=== PATIENT | female | born 1940 | race Caucasian/White ===

== ENCOUNTER 2024-09-15 22:42 | Emergency (ER) | payer MEDICARE, OTHER, SELFPAY ==
[2024-09-15 22:45] VITALS: BP 102/72
[2024-09-15 23:53] VITALS: BMI 42.0
--- NOTE | 2024-09-15 23:54 | ED.GENMED ---
History of Present Illness
General
Chief Complaint: Skin Surface Trauma
Source: patient
Time Seen by Provider: 09/15/24 23:37
Nursing documentation reviewed up to this point in time: agreed with
History of Present Illness
History of Present Illness:
Pleasant 84-year-old female presents to the emergency department after stepping on some broken glass. She had a slight laceration to the bottom of her right foot. Wound was thoroughly cleaned and no evidence of foreign body noted.
Past History
Past History
ED Past Medical History: COPD, HTN, Hypercholesterolemia and Other (diverticulitis, Chronic shoulder pain, Vertigo,)
ED Past Surgical History: Gynecological (Ovarian cyst)
Patient has exhibited threatening behavior?: No
Social History
Tobacco: Former smoker
Alcohol: Occasional
Drug: None
Personal:
Living: with family
Review of Systems
Review of Systems
Allergies reviewed?: Yes
All Other Systems: ROS reviewed and negative except as documented in HPI and ROS
Constitutional: Reports no symptoms
EENT: Reports no symptoms
Respiratory: Reports no symptoms
Cardiac: Reports no symptoms
ABD/GI: Reports no symptoms
: Reports no symptoms
Musculoskeletal: Reports no symptoms
Skin: Reports other (Superficial laceration)
Neurological: Reports no symptoms
Endocrine: Reports no symptoms
Hematologic/Lymphatic: Reports no symptoms
Psychiatric: Reports no symptoms
Phy Exam
General Physical Exam
General Presentation: well appearing and mild distress
General age: appears stated age
General Skin: warm
General Habitus: elderly
General Mental: alert
General Hydration: appears well hydrated
Skin Exam
Skin Exam: normal color
Psychiatric Exam
Psychiatric Exam: normal mood/affect
Course
Orders/Labs/Results
Orders:
Orders
09/16/24 00:00
CR Foot - Right Min 3 Views Urgent
Reason For Exam: possible fb
Vital Signs
Initial and Last Documented VS:
Initial Vital Signs
Temp Pulse Resp BP Pulse Ox
97.8 F 65 22 102/72 98
09/15/24 22:45 09/15/24 22:45 09/15/24 22:45 09/15/24 22:45 09/15/24 22:45
Last Documented Vital Signs
Temp Pulse Resp BP Pulse Ox
97.8 F 64 20 160/80 98
09/15/24 22:45 09/15/24 23:55 09/15/24 23:55 09/15/24 23:55 09/15/24 23:55
*Critical Care Note
Total Time (30-74mins, 75-104mins- exclusive of procedures): Not Applicable
Update Note
Update Note:
On x-ray there appears to be a small radiopaque foreign body right underneath the laceration. It is very deep. I discussed retrieving it with patient and she refused stating that she wishes just to leave it there. She states that she will
follow-up with podiatry for repeat exam . Patient states that her last tetanus shot was within the last year. Wound was closed with a Steri-Strip. Patient will follow-up with podiatry.
ED Attending Note
-
Portions of this chart may have been created with voice recognition software.� Occasional wrong word or��sound alike� substitutions may have occurred due to the inherent limitations of voice recognition software.
Discharge Plan
Departure
Patient Disposition: Longterm/SNF
Date of Disposition: 09/16/24
Time of Disposition: 00:40
Discharge Problem:
Foot laceration, Foreign body (FB) in soft tissue
Instructions: Wound Care (DC), BLOOD PRESSURE, Laceration
Referrals:
UNKNOWN - PT NOT,INTERVIEWE [Family Provider] -
Zulay Ashby DPM [Specified Professional Personl] - Next open appointment
Activity Restrictions/Additional Instructions:
You stated that your tetanus shot was up-to-date. If you find that your last tetanus was greater than 5 years ago, please follow-up with your family doctor for an update. There is still foreign body left in your foot. As discussed it is deep and
you chose to have is not retrieve it. Provided with the name of the show host on-call. I will give her a call for repeat exam.
It was a pleasure meeting you and taking part in your care. We hope for your continued healing and wellness.
Please read discharge instructions in their entirety. However, they are for general education and may not describe your exact diagnosis at discharge. Information on your ER visit and medical conditions were discussed with you along with appropriate
follow up information...
If indicated, please take your medications as instructed and indicated on discharge paperwork.
Please schedule a follow up appointment as directed. Call to schedule an appointment
Please return to the emergency department with ANY change in, persisting, or worsening of symptoms. If any of your symptoms do not improve, or persist, or become more severe within 6-12 hours, please return to the emergency department for further
care.
Please return to the emergency department if you develop a headache, neck pain/stiffness, fever greater than 100.4F, chest pain, shortness of breath, persistent nausea, vomiting, slurred speech, difficulty walking, numbness/tingling, weakness, signs
of infection or any other symptoms that are worrisome to you.
If you have any questions or concerns please do not hesitate to call the Hospital at or E-mail me directly at [email or web address]
Interventions
Interventions:
*Risk Screen - Suicide Last Done: 09/15/24 22:45
*General Assessment Last Done: 09/15/24 23:55
*Neglect/Abuse Screening Last Done: 09/15/24 22:45
ED- Fall Risk Assessment Last Done: 09/15/24 23:55
*ED COVID-19 Vaccine History Last Done: 09/15/24 23:55
ED-Skin Assessment Last Done: 09/15/24 23:55
Discharge Date and Time
Print Language: ALBANIAN
[2024-09-15 23:55] VITALS: BP 160/80
[2024-09-16 02:29] VITALS: BP 160/67
== END 2024-09-16 02:52 ==
LOC: EMR 22:42
PROVIDERS: EMERGENCY PHYSICIAN Student in an Organized Health Care Education/Training Program
DX: M79.5 Residual foreign body in soft tissue (principal); S91.311A Laceration without foreign body, right foot, initial encounter; W25.XXXA Contact with sharp glass, initial encounter; Z87.891 Personal history of nicotine dependence
CPT/HCPCS: 99283; 73630

== ENCOUNTER 2025-06-09 19:46 | Emergency (ER) | payer MEDICARE, OTHER, SELFPAY ==
[2025-06-09 19:51] VITALS: BP 110/93
[2025-06-09 19:57] VITALS: BP 125/66
[2025-06-09 20:00] VITALS: BP 134/62; BMI 41.6
--- NOTE | 2025-06-09 20:18 | ED.GENMED ---
History of Present Illness
General
Chief Complaint: Fall
Source: patient
Exam Limitations: dementia
Time Seen by Provider: 06/09/25 19:59
Nursing documentation reviewed up to this point in time: agreed with
History of Present Illness
History of Present Illness:
84-year-old female suffers from dementia apparently fell struck her head no blood thinners by report, she has a hematoma on her left posterior occiput she has pain in her left shoulder no pain with range of motion in her hips she knows she is at the
hospital unsure of the year she is asking about her previous physicians being here
Past History
Past History
ED Past Medical History: COPD, HTN, Hypercholesterolemia and Other (diverticulitis, Chronic shoulder pain, Vertigo,)
ED Past Surgical History: Gynecological (Ovarian cyst)
Patient has exhibited threatening behavior?: No
Social History
Tobacco: Former smoker
Alcohol: Occasional
Drug: None
Personal:
Living: with family
Employment: Retired
Review of Systems
Review of Systems
All Other Systems: Not applicable
Musculoskeletal: Reports joint pain
Phy Exam
Physical Exam
Physical Exam:
Physical Exam
General: Cooperative elderly female
Neck: No tongue bite no posterior neck pain
Heart: Regular
Lungs: no acute respiratory distress.
Neuro: Moves all extremities oriented to place and person unsure of the year
Skin: no rash
Psychiatric: Cooperative demented
Extremities: Pain with range of motion of the hips, decreased range of motion of the left shoulder due to pain
Course
Orders/Labs/Results
Orders:
Orders
06/09/25 20:13
CT Cervical Spine W/o Iv Contr Urgent
Comment:
Reason For Exam: fall
CT Head W/o Iv Contrast Urgent
Comment:
Reason For Exam: fallo
Humerus, Left 2 Views [CR Humerus - Left Min 2 Views*] Urgent
Comment:
Reason For Exam: fall
06/09/25 22:10
Sling Left-Treatment ONCE
Vital Signs
Initial and Last Documented VS:
Initial Vital Signs
Temp Pulse Resp BP Pulse Ox
98.5 F 72 14 110/93 99
06/09/25 19:51 06/09/25 19:51 06/09/25 19:51 06/09/25 19:51 06/09/25 19:51
Last Documented Vital Signs
Temp Pulse Resp BP Pulse Ox
98.5 F 70 15 129/65 98
06/09/25 19:51 06/09/25 22:30 06/09/25 22:30 06/09/25 21:00 06/09/25 22:30
*Radiology
Radiology exam reviewed: radiology read reviewed
*Pulse Oximetry
SaO2: 99
Oxygen Mode of Delivery: Room air
Patient hypoxic: no
*Critical Care Note
Total Time (30-74mins, 75-104mins- exclusive of procedures): Not Applicable
Update Note
Update Note:
Update 10:15 PM,
CT noted CT report noted suspect this is a chronic finding based upon the fact that the patient is here with a fall
Humerus film noted will mobilize
ED Attending Note
-
Portions of this chart may have been created with voice recognition software.� Occasional wrong word or��sound alike� substitutions may have occurred due to the inherent limitations of voice recognition software.
Discharge Plan
Departure
Patient Disposition: Home (Routine Discharge)
Date of Disposition: 06/09/25
Time of Disposition: 22:56
Patient with high blood pressure during this ER visit?: No
Condition: Good
Discharge Problem:
Fracture, humerus closed
Instructions: Head Injury in Adults (DC), Preventing falls in adults, Upper Arm Fracture ED
Referrals:
Reggie Gandhi MD [Active, Orthopedics] - Follow up in 1 week
Greg Shelton DO [Family Provider, Internal Medicine]
Activity Restrictions/Additional Instructions:
Ice to your shoulder
Use sling
Follow-up with Dr. Gandhi orthopedist and Dr. Shelton family doctor
Interventions
Interventions:
*Risk Screen - Suicide Last Done: 06/09/25 19:51
*General Assessment Last Done: 06/09/25 19:51
*Neglect/Abuse Screening Last Done: 06/09/25 19:51
*ED- Fall Risk Assessment Last Done: 06/09/25 20:00
*ED COVID-19 Vaccine History Last Done: 06/09/25 20:00
ED-Musculoskeletal Assessment Last Done: 06/09/25 20:00
ED- Neurological Assessment Last Done: 06/09/25 20:00
ED-Skin Assessment Last Done: 06/09/25 20:11
Discharge Date and Time
Print Language: AMHARIC
[2025-06-09 21:00] VITALS: BP 129/65
== END 2025-06-09 23:34 | disposition home or self-care (01) ==
LOC: EMR 19:46
PROVIDERS: EMERGENCY PHYSICIAN Emergency Medicine; FAMILY PHYSICIAN Internal Medicine Geriatric Medicine
DX: S42.202A Unspecified fracture of upper end of left humerus, initial encounter for closed fracture (principal); S00.93XA Contusion of unspecified part of head, initial encounter; W19.XXXA Unspecified fall, initial encounter; F03.90 Unspecified dementia, unspecified severity, without behavioral disturbance, psychotic disturbance, mood disturbance, and anxiety; E78.00 Pure hypercholesterolemia, unspecified; J44.9 Chronic obstructive pulmonary disease, unspecified; I10 Essential (primary) hypertension; Z87.891 Personal history of nicotine dependence
CPT/HCPCS: 99284; 70450; 72125; 73060